=== PATIENT | female | born 1970 | race Caucasian/White ===

== ENCOUNTER 2022-03-07 12:38 | Outpatient (CLI) | payer MEDICAID, SELFPAY ==
[2022-03-07 20:36] LABS: Chloride* 102 mmol/L (96-114); Potassium* 4.1 mmol/L (3.6-5.1); Sodium* 139 mmol/L (135-149)
[2022-03-07 20:38] LABS: Cholesterol* 201 mg/dL (90-199); Creatinine* 0.9 mg/dL (0.5-1.5); Estimated Glomerular Filt Rate 78 ml/min
[2022-03-07 20:39] LABS: Blood Urea Nitrogen* 18 mg/dL (5-24); Calcium* 9.7 mg/dL (8.4-10.6); Carbon Dioxide* 30 mmol/L (20-32); Glucose* 108 mg/dL (60-115); HDL Cholesterol* 49 mg/dL (>=50); LDL Cholesterol Calculated 115 mg/dL (<100); Triglycerides* 184 mg/dL (40-149)
== END 2022-03-07 12:39 | disposition home or self-care (01) ==
PROVIDERS: PCP Family Medicine; Visit Provider Family Medicine
DX: I10 Essential (primary) hypertension (principal); F41.1 Generalized anxiety disorder; G47.00 Insomnia, unspecified; Z13.6 Encounter for screening for cardiovascular disorders
CPT/HCPCS: 80048; 80061

== ENCOUNTER 2022-04-04 15:08 | Outpatient (CLI) | payer MEDICAID, SELFPAY ==
[2022-04-04 15:36] LABS: Appearance Urine Cloudy (Clear); Bilirubin Urine Negative (Negative); Blood Urine Negative (Negative); Color Urine Yellow (Yellow); Glucose Urine Negative (Negative); Ketones Urine Negative (Negative); Leukocyte Esterase Urine Negative (Negative); Nitrite Urine Negative (Negative); Protein Urine Negative (Negative); Specific Gravity Urine >= 1.030 (1.000-1.030); Urobilinogen Urine 0.2 (0.2-1.0)
[2022-04-04 21:23] LABS: Basophils Absolute Auto 0.04 K/uL (0.00-0.30); Basophils Percent Auto 0.5 % (0.0-3.0); Eosinophils Absolute Auto 0.09 K/uL (0.00-0.50); Hematocrit 44.1 % (33.0-51.0); Hemoglobin* 14.5 gm/dL (12.0-16.0); Immature Granulocytes Abs Auto 0.01 K/uL (0.00-0.30); Lymphocytes Absolute Auto 2.27 K/uL (0.90-2.90); Lymphocytes Percent Auto 25.9 % (20-44); Mean Corpuscular HGB Conc 33 gm/dL (32-36); Mean Corpuscular Hemoglobin 26 pg (26-34); Mean Corpuscular Volume 80 fL (80-100); Monocytes Percent Auto 8.3 % (0.0-11.0); Neutrophils Absolute Auto 5.64 K/uL (1.7-7.0); Neutrophils Percent Auto 64.2 % (42.0-72.0); Platelet Count* 359 K/uL (140-440); Red Blood Count 5.53 m/uL (4.00-5.20); White Blood Count* 8.78 K/uL (4.50-11.00)
[2022-04-04 21:28] LABS: Slide Review Reflex No
[2022-04-04 22:08] LABS: Squamous Epithelial Cell Urine Moderate (None-Few)
[2022-04-04 22:09] LABS: Bacteria Urine Many; Other Sediment Urine CALCIUM OXALATE
[2022-04-04 22:47] LABS: Potassium* 3.9 mmol/L (3.6-5.1); Sodium* 138 mmol/L (135-149)
[2022-04-04 22:48] LABS: Carbon Dioxide* 26 mmol/L (20-32); Chloride* 101 mmol/L (96-114)
[2022-04-04 22:49] LABS: Blood Urea Nitrogen* 23 mg/dL (5-24); Calcium* 9.5 mg/dL (8.4-10.6); Creatinine* 1.1 mg/dL (0.5-1.5); Estimated Glomerular Filt Rate 62 ml/min; Glucose* 133 mg/dL (60-115); Total Protein* 7.5 g/dL (6.0-8.3)
[2022-04-04 22:50] LABS: Alanine Aminotransferase* 18 U/L (4-35); Albumin* 4.4 g/dL (3.3-5.0); Alkaline Phosphatase* 98 U/L (40-150); Amylase* 70 U/L (18-89); Aspartate Amino Transferase* 23 U/L (12-35); Bilirubin Total* < 0.1 mg/dL (0.1-1.5); Lipase* 182 U/L (23-300)
== END 2022-04-04 15:09 | disposition home or self-care (01) ==
PROVIDERS: PCP Family Medicine; Visit Provider Nurse Practitioner Family
DX: R10.9 Unspecified abdominal pain (principal); R42 Dizziness and giddiness
CPT/HCPCS: 36415; 80053; 81003; 81015; 82150; 83690; 85025; 87086

== ENCOUNTER 2022-04-18 12:49 | Outpatient (CLI) | payer MEDICAID, SELFPAY ==
--- NOTE | 2022-04-18 13:00 | MR_ITS ---
[facility] [address] [facility] [address] Phone:?[phone] Fax:?[phone] Referring Physician Information: Osbaldo Kwong [address] [facility] [address] Phone:?[phone] Fax:?[phone] Patient:?Maureen Montenegro D.O.B:?1970 Sex:?Female Phone:?[phone] [facility] MRN:?[id number] Exam Date:?04/18/2022 ? EXAM:?MR CERVICAL SPINE WITHOUT CONTRAST CLINICAL INFORMATION: Neck pain evaluate for worsening disc protrusion. COMPARISON: 10/05/2020.?CONTRAST:?None. SEDATION:?None. TECHNICAL INFORMATION: Imaging was performed at [facility]. T1, T2 MPGR, T2 FSE and STIR sagittal thin sections through the cervical spine with T2 gradient refocused and T2 FSE axial sections at selected levels. Axial T1 images were also obtained. INTERPRETATION: Fat suppressed images are negative for acute or subacute fractures. Craniocervical junction structures are unremarkable and the cord appears intrinsically normal. Vertebral artery flow voids and no paraspinous mass lesions. C2-3: Bulge without central or foraminal stenosis and left facet joint degeneration. C3-4: Bulge/left protrusion and osteophyte contact the cord, no central stenosis and severe chronic-appearing left foraminal stenosis. Patent right nerve root canal and unremarkable facet joints. C4-5: Bulge abuts the cord without central stenosis. Moderate right and mild to moderate left chronic foraminal stenosis and unremarkable facet joints. C5-6 and C6-7: Solid-appearing interbody fusion with fused uncovertebral joints by MR criteria. No recurrent central stenosis and continued mild ventral cord flattening due to dorsal osteophyte and fusion bone at C5-6. Foramina appear patent at each level and facet joints are not fused. C7-T1: Bulge abuts dural sac without central or foraminal stenosis. Unremarkable facet joints. CONCLUSION: 1. Solid fusion at C5-6 and C6-7 without complications. 2. Adjacent segment disc degeneration including cord abutment without central stenosis due to bulge/osteophyte at C4-5, and bulge/left protrusion with osteophyte at C3-4 contacts the cord. 3. C7-T1 bulge without stenosis or impingement. 4. Severe left C3-4 and moderate right/mild to moderate left C4-5 foraminal stenosis. Note: Comparison to 10/05/2020 shows no significant interval changes. [id number]:rika Electronically signed on 04/20/2022 6:39:00 AM by Thiago Cardona M.D.
== END 2022-04-18 12:50 | disposition home or self-care (01) ==
PROVIDERS: PCP Family Medicine; Visit Provider Nurse Practitioner Family
DX: M54.2 Cervicalgia (principal); M50.31 Other cervical disc degeneration, high cervical region; M48.02 Spinal stenosis, cervical region
CPT/HCPCS: 72141

== ENCOUNTER 2022-06-08 07:56 | Outpatient (CLI) | payer MEDICAID, SELFPAY ==
--- NOTE | 2022-06-08 08:15 | CRLHL7_ITS ---
For Patients: As a result of the Century Cures Act, medical imaging exams and procedure reports are released immediately into your electronic medical record. You may view this report before your referring provider. If you have questions, please contact your health care provider. INDICATION: Dysphagia TECHNIQUE: Modified barium swallow. Fluoroscopic time 1 minutes 45 seconds. COMPARISON: None FINDINGS/IMPRESSION: Anatomical structures are normal. Swallowing mechanism appears within normal limits. No episodes of penetration or aspiration. Decreased esophageal motility noted in the upper esophagus and mid esophagus. No evidence of stricture or diverticulum. No achalasia. Normal appearance of the cricopharyngeus muscle. Postop changes lower cervical spine fusion. Dictated by Roberto Carlos Morgan MD @ 06/08/2022 9:22:10 AM (Electronically Signed)
--- NOTE | 2022-06-08 13:35 | SLP.EVAL ---
Staci Please review, sign and return Thank you Priscilla Torres, LAYBOY OPERATOR LAYBOY OPERATOR Susan Davis Start: 06/08/22 10:48 Freq: Status: Active Protocol: Document 06/08/22 10:48 [facility] (Rec: 06/08/22 11:08 [facility] [id number]) E-signed By Priscilla Torres CCC, LAYBOY OPERATOR LAYBOY OPERATOR System Review History & Reason For Referral Type of Speech Evaluation Modified Barium Swallow Evaluation Rehabilitation Order Evaluation Date of Order 05/31/22 Reason for Referral swallowing difficulty Treatment Diagnosis Dysphagia Patient Orientation Orientation & Mental Status Within normal LAYBOY OPERATOR Initial Assessment/POC Subjective Information Subjective/Pain Comment Patient independently ambulated to the xray suite. She is pleasant and cooperative. Assessment & Impression Assessment/Impression Patient is a 52 year old female referred for a modified barium swallow study due to complaints of swallowing difficulty. She reports that it happens intermittently and that she feels that food gets stuck and if she takes water, the water comes back up and she sometimes feels like she is choking. She has a history of reflux and takes 40mg omeprazole twice a day. She reports her mother had the same problem and had some procedure but she wasn't sure what it was. ORAL MOTOR FUNCTION AND DENTITION Tongue and lip function within normal and she has adequate natural dentition. THIN LIQUID Patient took small and large sips of thin liquid. She was able to control the boluses well, swallow and had no penetration, aspiration on any trials. PUREE Patient given a teaspoon of puree. She manipulated and swallowed with no penetration, aspiration or pharyngeal residue. She reported the feeling of food sticking. The radiologist panned downed and it did seem that her esophagus was slow to empty. MUFFIN AND COOKIE WITH BARIUM PUREE Patient given separate trials of muffin and cookie mixed with barium puree. She was able to chew and swallow each consistency without penetration, aspiration, or pharyngeal residue. She again felt the food getting stuck and when the radiologist panned down it was evident that her esophagus was slow to empty and some of the bolus was coming back up. IMPRESSIONS AND RECOMMENDATIONS Patient exhibits and safe and functional oral pharyngeal swallow with no penetration, aspiration or pharyngeal residue. The radiologist had the following observations: Anatomical structures are normal. Swallowing mechanism appears within normal limits. No episodes of penetration or aspiration. Decreased esophageal motility noted in the upper esophagus and mid esophagus. No evidence of stricture or diverticulum. No achalasia. Normal appearance of the cricopharyngeal muscle. Postop changes lower cervical spine fusion. Patient reports she is scheduled for an endoscopy. An esophagram is recommended to more fully evaluate esophageal motility. Recommended to patient that she eat softer foods, swallow multiple times to help the bolus move through the esophagus and make sure she give time between bites for her esophagus to clear. Therapist Signature & License # I Certify That Therapy Services Provided Therapist Signature & License Number Priscilla Torres [facility]-LAYBOY OPERATOR, # [id number] Physician Signature Signature of Physician Indicates Medically Needed Services Physician Signature & Date Required Please Sign/Date Here Speech/Language Pathology Billing Units Billing Units Eval Swallow Motion Fluoro 1
== END 2022-06-08 07:57 | disposition home or self-care (01) ==
LOC: RAD 07:57
PROVIDERS: PCP Family Medicine; Visit Provider Nurse Practitioner Family
DX: R13.10 Dysphagia, unspecified (principal)
CPT/HCPCS: 74230; 92611

== ENCOUNTER 2022-06-20 12:37 | Outpatient (CLI) | payer MEDICAID, SELFPAY ==
--- NOTE | 2022-06-20 14:25 | W.ANESCHARGE ---
Anesthesia Charges Start Date/Time Anesthesia Start Date: 06/20/22 Anesthesia Start Time: 13:10 Stop Date/Time Anesthesia Stop Date: 06/20/22 Anesthesia Stop Time: 14:20 Summary Emergency: No
--- NOTE | 2022-06-20 14:34 | W.ANESCHARGE ---
Anesthesia Charges Start Date/Time Anesthesia Start Date: 06/20/22 Anesthesia Start Time: 13:10 Stop Date/Time Anesthesia Stop Date: 06/20/22 Anesthesia Stop Time: 14:20 Summary Emergency: No
== END 2022-06-20 12:38 | disposition home or self-care (01) ==
PROVIDERS: PCP Nurse Practitioner Family; Visit Provider Surgery
DX: Z12.11 Encounter for screening for malignant neoplasm of colon (principal); Z86.010 Personal history of colon polyps; R13.10 Dysphagia, unspecified; K44.9 Diaphragmatic hernia without obstruction or gangrene; K29.70 Gastritis, unspecified, without bleeding; K31.89 Other diseases of stomach and duodenum
CPT/HCPCS: 00811; 00813; 43239; 45378; 88305; 88342; J2704

== ENCOUNTER 2022-08-15 22:45 | Emergency (ER) | payer MEDICAID, SELFPAY ==
[2022-08-15 23:01] VITALS: BP 121/82; PULSE 100; RESP 16; TEMP 36.8; O2SAT 96; BMI 29.9
[2022-08-15] MEDS: ONDANSETRON 2 MG/ML inj 4 MG IVP (23:28)
[2022-08-15] MEDS: 0.9 % SODIUM CHLORIDE 1000 ml 1,000 ML IV (23:31)
--- NOTE | 2022-08-15 23:37 | ED.NAVMDI ---
HPI - Nausea/Vomiting/Diarrhea General Chief complaint: Nausea/Vomiting Stated complaint: Nausea, diarrhea, vomiting Time Seen by Provider: 08/15/22 23:10 History of Present Illness HPI Narrative: Pt is a 52 year old woman who presents with a 1 day history of nausea, vomiting and diarrhea. No fevers or chills. No abd pain. No weakness. No recent travel or sick contacts. Pt has no chest pain or shortness of breath. Pt has had no blood in her vomitus or stool. Pt has otherwise been feeling well. No treatments prior to arrival. Related Data Home Medications Medication Instructions Recorded Confirmed aspirin 81 mg tablet,delayed 81 mg PO QDAY 02/23/22 08/15/22 release cyclobenzaprine 10 mg tablet 10 mg PO .hs PRN 02/23/22 08/15/22 diclofenac sodium 1 % topical gel 2 - 4 g topical QID 02/23/22 08/15/22 (Voltaren Arthritis Pain) Previous Rx's Medication Instructions Recorded lorazepam 0.5 mg tablet (Ativan) 0.5 mg PO BID PRN anxiety #60 tabs 03/07/22 metoprolol succinate 50 mg 50 mg PO QDAY #90 tabs 03/07/22 tablet,extended release 24 hr hydrochlorothiazide 25 mg tablet 25 mg PO QDAY #90 tabs 03/22/22 sumatriptan succinate 100 mg 100 mg PO Q2H PRN migraine 04/06/22 tablet (Imitrex) headache #20 tabs omeprazole 40 mg capsule,delayed 40 mg PO BID #60 caps 07/16/22 release zolpidem 10 mg tablet (Ambien) 10 mg PO .hs PRN sleep #30 tabs 07/16/22 fluoxetine 20 mg capsule (Prozac) 20 mg PO QDAY 30 days #30 caps 07/29/22 tramadol 50 mg tablet 50 mg PO QID PRN pain #120 tabs 08/01/22 Allergies Allergy/AdvReac Type Severity Reaction Status Date / Time No Known Drug Allergies Allergy Verified 07/29/22 12:08 Review of Systems Status of ROS: Reports: 10 or more systems reviewed and unremarkable except as noted in History and below [facility] Medical History Chronic neck pain Depression Fibromyalgia JG (generalized anxiety disorder) GERD (gastroesophageal reflux disease) Health care directive on file History of colon polyps History of kidney stones History of peptic ulcer disease Hypertension Insomnia Migraine Restless legs syndrome (RLS) Surgical History History of fusion of cervical spine (07/2017) History of hemorrhoidectomy (2010) History of laparoscopic cholecystectomy (01/20/21) History of total abdominal hysterectomy and bilateral salpingo-oophorectomy (2003) Family History Mother Coronary artery disease Esophageal stricture Brother Family history of prostate cancer Colon cancer Sister Ovarian cancer, Onset Age: 52 Social History (Updated 03/29/22 @ 13:06 by Danyell Sanabria) Narrative: . 2 children. Nonsmoker. Social EtOH. Smoking Status: Never smoker Little interest or pleasure in doing things: nearly every day Feeling down, depressed, or hopeless: more than half the days Exam Narrative: Exam Narrative: EXAM GENERAL: Patient appears comfortable and well. EYES: No scleral icterus. THYROID: no thyroid nodules or thyromegaly. LYMPH: No supraclavicular or cervical lymphadenopathy. SKIN: Visible skin seen during exam normal or with benign process only. EXT: No dependent lower extremity pedal edema. HEART: Regular rate and rhythm with no murmurs, rubs, or gallops. LUNGS: Clear to auscultation bilaterally with no crackles or wheezes. ABD: Soft, non tender, non distended. PSYCH: Good eye contact, speech is not pressured. Const: Vital Signs, click to edit/add: Vital Signs - 24 hr 08/15/22 23:01 Temperature 98.3 F Pulse Rate [Right Pulse Oximeter] 100 Respiratory Rate 16 Blood Pressure [Ri ght Upper Arm] 121/82 Pulse Oximetry 96 Oxygen Delivery Me thod Room Air Course Course Hospital Course: Pt seen and examined. Saline lock placed. Saline hydration started IV Zofran given. cbc, cmp, amylase ordered. Reevaluation(s) Reevaluation #1: Pt feeling better. Labs reviewed by me. Potassium low at 3.0. Pt able to tolerate 40 meq of oral potassium. 2 liters saline given. Time: 01:01 Vital Signs Vital signs: Initial Vital Signs Temperature 98.3 F 08/15/22 23:01 Temperature Source Temporal Artery Scan 08/15/22 23:01 Pulse Rate 100 08/15/22 23:01 Pulse Rhythm 08/15/22 23:01 Respiratory Rate 16 08/15/22 23:01 Blood Pressure 121/82 08/15/22 23:01 Blood Pressure Mean 95 08/15/22 23:01 Blood Pressure Position Sitting 08/15/22 23:01 Pulse Oximetry 96 08/15/22 23:01 Oxygen Delivery Method 08/15/22 23:01 Vital Signs Temperature 98.3 F 08/15/22 23:01 Pulse Rate 100 08/15/22 23:01 Respiratory Rate 16 08/15/22 23:01 Blood Pressure 121/82 08/15/22 23:01 Pulse Oximetry 96 08/15/22 23:01 Oxygen Delivery Method 08/15/22 23:01 Temperature 98.3 F 08/15/22 23:01 Pulse Rate 100 08/15/22 23:01 Respiratory Rate 16 08/15/22 23:01 Blood Pressure 121/82 08/15/22 23:01 Pulse Oximetry 96 08/15/22 23:01 Oxygen Delivery Method 08/15/22 23:01 MDM - Nausea/Vomiting/Diarrhea Medical Records Medical records narrative: Pt presents with nausea, vomiting and diarrhea. Symptoms resolve with saline hydration and zofran. Pt's hypokalemia treated with oral 40 MEQ plus resumption of a regular diet. Exam and vitals otherwise normal. Pt treated and released with odt Zofran and PCP follow up. Lab Data Labs: Lab Results 08/15/22 08/15/22 Range/Units 23:30 23:30 WBC 8.69 (4.50-11.00) K/uL RBC 5.11 (4.00-5.20) m/uL Hgb 14.9 (12.0-16.0) gm/dL Hct 43.2 (33.0-51.0) % MCV 85 (80-100) fL MCH 29 (26-34) pg MCHC 35 (32-36) gm/dL RDW Coeff of Felix 13.1 (11.5-15.5) % Plt Count 307 (140-440) K/uL Neut % (Auto) 83.9 H (42.0-72.0) % Lymph % (Auto) 8.7 L (20-44) % [place] % (Auto) 7.1 (0.0-11.0) % Eos % (Auto) 0.0 (0.0-7.0) % Baso % (Auto) 0.1 (0.0-3.0) % Neut # (Auto) 7.30 H (1.7-7.0) K/uL Lymph # (Auto) 0.80 L (0.90-2.90) K/uL [place] # (Auto) 0.60 (0.00-0.90) K/UL Eos # (Auto) 0.00 (0.00-0.50) K/uL Baso # (Auto) 0.01 (0.00-0.30) K/uL Sodium 138 (135-149) mmol/L Potassium 3.0 L (3.6-5.1) mmol/L Chloride 103 (96-114) mmol/L Carbon Dioxide 26 (20-32) mmol/L BUN 23 (7-30) mg/dL Creatinine 0.7 (0.5-1.5) mg/dL Estimated Creat Clear 90.01 Estimated GFR 105 ml/min Glucose 153 H (60-115) mg/dL Calcium 9.1 (8.4-10.6) mg/dL Total Bilirubin 0.6 (0.1-1.5) mg/dL AST 26 (12-35) U/L ALT 24 (4-35) U/L Alkaline Phosphatase 79 (40-150) U/L Total Protein 7.5 (6.0-8.3) g/dL Albumin 4.6 (3.3-5.0) g/dL Amylase 68 (18-89) U/L Discharge Plan Discharge Clinical Impression: Gastroenteritis Patient Disposition: Home, Self-Care Condition: Stable Instructions: Gastroenteritis (ED) Additional Instructions: Zofran ODT as directed Activity Level: No Restrictions Discharge Diet: Regular Prescriptions: No Action metoprolol succinate 50 mg tablet extended release 24 hr 50 mg PO QDAY Qty: 90 1RF lorazepam [Ativan] 0.5 mg tablet 0.5 mg PO BID PRN (Reason: anxiety) Qty: 60 2RF fluoxetine [Prozac] 20 mg capsule 20 mg PO QDAY 30 Days Qty: 30 0RF tramadol 50 mg tablet 50 mg PO QID PRN (Reason: pain) Qty: 120 1RF aspirin 81 mg tablet,delayed release (DR/EC) 81 mg PO QDAY Hold Instructions: none cyclobenzaprine 10 mg tablet 10 mg PO .hs PRN diclofenac sodium [Voltaren Arthritis Pain] 1 % gel 2 - 4 g topical QID Rx Instructions: apply to single elbow, wrist or hand; for hand includes palm/fingers/back of hand hydrochlorothiazide 25 mg tablet 25 mg PO QDAY Qty: 90 1RF sumatriptan succinate [Imitrex] 100 mg tablet 100 mg PO Q2H MDD 200mg PRN (Reason: migraine headache) Qty: 20 5RF zolpidem [Ambien] 10 mg tablet 10 mg PO .hs PRN (Reason: sleep) Qty: 30 5RF omeprazole 40 mg capsule,delayed release(DR/EC) 40 mg PO BID Qty: 60 0RF Follow Up/Referrals: Staci Mckinley, GROCERY CHECKER, RECREATIONAL PROGRAMS DIRECTOR [Primary Care Provider] - Stand Alone Forms: [facility] Instructions
[2022-08-15 23:41] LABS: Basophils Absolute Auto 0.01 K/uL (0.00-0.30); Basophils Percent Auto 0.1 % (0.0-3.0); Hematocrit 43.2 % (33.0-51.0); Hemoglobin* 14.9 gm/dL (12.0-16.0); Immature Granulocytes Abs Auto 0.02 K/uL (0.00-0.30); Immature Granulocytes Pct Auto 0.2 %; Lymphocytes Percent Auto 8.7 % (20-44); Mean Corpuscular HGB Conc 35 gm/dL (32-36); Mean Corpuscular Hemoglobin 29 pg (26-34); Mean Corpuscular Volume 85 fL (80-100); Monocytes Percent Auto 7.1 % (0.0-11.0); Neutrophils Percent Auto 83.9 % (42.0-72.0); Platelet Count* 307 K/uL (140-440); RDW Coefficient of Variation % 13.1 % (11.5-15.5); Red Blood Count 5.11 m/uL (4.00-5.20); White Blood Count* 8.69 K/uL (4.50-11.00)
[2022-08-15 23:49] LABS: Slide Review Reflex No
[2022-08-15 23:53] LABS: Albumin* 4.6 g/dL (3.3-5.0)
[2022-08-15 23:54] LABS: Chloride* 103 mmol/L (96-114); Sodium* 138 mmol/L (135-149)
[2022-08-15 23:56] LABS: Amylase* 68 U/L (18-89); Bilirubin Total* 0.6 mg/dL (0.1-1.5); Carbon Dioxide* 26 mmol/L (20-32); Creatinine* 0.7 mg/dL (0.5-1.5); Est. Creatinine Clearance* 90.01; Estimated Glomerular Filt Rate 105 ml/min; Total Protein* 7.5 g/dL (6.0-8.3)
[2022-08-15 23:57] LABS: Alanine Aminotransferase* 24 U/L (4-35); Alkaline Phosphatase* 79 U/L (40-150); Aspartate Amino Transferase* 26 U/L (12-35); Blood Urea Nitrogen* 23 mg/dL (7-30); Calcium* 9.1 mg/dL (8.4-10.6); Glucose* 153 mg/dL (60-115)
--- NOTE | 2022-08-15 23:57 | ED.NURSE ---
Daughter Heather will be heading home. Her number is [phone]
[2022-08-16] MEDS: KETOROLAC 30 MG/ML inj IVP
[2022-08-16 01:00] VITALS: BP 118/78; PULSE 74; RESP 16; O2SAT 95
[2022-08-16] MEDS: 0.9 % SODIUM CHLORIDE 1000 ml 1,000 ML IV (01:02)
[2022-08-16] MEDS: POTASSIUM CHLORIDE 10 MEQ CAPSULE ER 40 MEQ PO (01:03)
[2022-08-16 02:14] VITALS: BP 113/75; PULSE 75; RESP 16
== END 2022-08-16 02:15 | disposition home or self-care (01) ==
PROVIDERS: Emergency Provider Internal Medicine; PCP Nurse Practitioner Family
DX: K52.9 Noninfective gastroenteritis and colitis, unspecified (principal)
CPT/HCPCS: 36415; 80053; 82150; 85025; 96374; 96375; 99283; 99284; A9270; J1885; J2405; J7030

== ENCOUNTER 2023-04-21 10:40 | Outpatient (CLI) | payer MEDICAID, SELFPAY | END 2023-04-21 10:41 | disposition home or self-care (01) | PROVIDERS: PCP Nurse Practitioner Family; Visit Provider Nurse Practitioner Family | DX: Z01.818 Encounter for other preprocedural examination (principal) | CPT/HCPCS: 80053; 85025 ==

== ENCOUNTER 2023-10-01 20:59 | Emergency (ER) | payer MEDICAID, SELFPAY ==
[2023-10-01 21:10] VITALS: BP 96/66; PULSE 57; RESP 18; TEMP 36.7; O2SAT 98; BMI 28.1
--- OUTSIDE RECORDS SUMMARY | 2023-10-01 21:38 | XMS_ITS | Patient Health Record ---
Author Name Unknown Organization [facility] Address [address] [place] [address] [address] [place] [address] Care Team Providers Care Healthcare Technician Name Role Phone Roberto Carlos Hill MD Primary Care Provider Unavail able Orville Quezada Unavailable [phone] Saul [facility] MALDONADO Unavailable Un available Jeremy Reed Unavailable [phone] Bruce Sanchez Unavailable [phone] Joanna Morley Unavailable [phone] ALLERGIES Allergen (clinical drug ingredient) Drug/Non Drug Allergy documented on EMR Reaction Allergy Type Onset Date Status ibuprofen Ibuprofen Unknown Drug Allergy Active RESULTS Component Value Reference Range Notes Urine toxicology Reviewed date:03/16/2023 01:55:25 PM Interpretation:See Results Performing Lab: Notes/Report: See Results ADAN Buprenophine OPI 300 0 AMP Ethanol MET Creatinine MDMA pH Specific [place] BAR BZO OXY See Results MTD Urine toxicology Reviewed date:03/16/2023 01:55:25 PM Interpretation:See Results Performing Lab: Notes/Report: See Results ADAN Buprenophine OPI 300 0 AMP Ethanol MET Creatinine MDMA pH Specific [place] BAR BZO OXY See Results MTD Urine toxicology Reviewed date:01/10/2023 01:08:14 PM Interpretation:see results Performing Lab: Notes/Report: see results ADAN Buprenophine OPI 300 1000 AMP Ethanol MET Creatinine MDMA pH Specific [place] BAR BZO OXY See Results MTD REASON FOR REFERRAL Reason Refer to [facility] [place]. Evaluate and treat neck and low back pain. Continue PT for neck pain and add low back to plan of care. Please call patient to schedule at [phone] Diagnosis 1 Cervicalgia (M54.2) Diagnosis 2 Low back pain, unspe cified (M54.50) Referral Organization [facility] Referring Provider First Name Bruce Referring Provider Last Name Matiasjoseph Referring Provider Speciality Physician Claim Approver Referred Provider Specialty Physical The rapist General Notes Blanca Baxter 023 03:23:06 PM >Please call the patient to schedule and fax back all notes to [phone]. If you need additional records for this referral, please call [phone]. Thanks! Referral Priority Routine MEDICATIONS Medication SIG (Take, Route, Frequency, Duration) Notes Start Date End Date Status Belbuca 150 MCG 1 film Bucally every 12 hrs for 30 days G89.29, M54.2 04/04/2023 Active oxyCODONE-Acetaminophen 5-325 MG 1 tablet as needed Orally (ok to fill 04/15/23) every 8 hours for 30 days G89.29, M54.2 04/15/2023 Active SUMAtriptan Succinate Active Naloxone 4mg/ 0.1 ml 1 dose Nasally PRN for suspected overdose, call 911, open second box and give 1 dose nasally q 2-3 min until EMS arrives Active Ondansetron HCl 8 MG 1 tablet as needed Orally Once a day Active rOPINIRole HCl 1 MG 1 tablet 1 to 3 hours before bedtime Orally Once a day Active Metoprolol Succinate ER Active Omeprazole 40 MG 1 capsule 30 minutes before morning meal Orally Once a day Active Gabapentin 300 MG 2 capsule Orally Once a day Active hydroCHLOROthiazide Active Zolpidem Tartrate 10 MG 1 tablet at bedtime as needed Orally Once a day Active Diclofenac Sodium 1 % as directed Externally Active tiZANidine HCl 4 MG 1 tablet as needed Orally Three times a day Active LORazepam 0.5 MG 1 tablet as needed Orally Twice a day Active SOCIAL HISTORY Sex Assigned At : Social History Observation Description Sex Assigned At Unknown Alcohol Screen Question Answer Notes Did you have a drink containing alcohol in the p ast year? No Points 0 Interpretation Negative PROBLEMS Problem Type ICD Code Onset Dates Problem Status W/U Status Risk SNOMED Code Notes Problem Opioid dependence, uncomplicated (F11.20) Active confirmed Opioid dependence (53654267) Problem Other chronic pain (G89.29) Active confirmed Chronic pain (89565905) Problem Spondylosis without myelopathy or radiculopathy, cervical region (M47.812) Active confirmed Cervical spondylosis without myelopathy (818007733) Problem Cervicalgia (M54.2) Active confirmed Cervicalgia (83692281) Problem Low back pain, unspecified (M54.50) Active confirmed Low back pain (828712678) Problem Cervical radiculopathy (M54.12) Active confirmed Cervical radiculopathy (74815627) VITAL SIGNS Blood pressure diastolic 94 mm Hg 04/04/2023 Height 66 in 04/04/2023 Blood pressure systolic 160 mm Hg 04/04/2023 Weight 180 lbs 04/04/2023 BMI 29.05 kg/m2 04/04/2023 PROCEDURES Procedure Date Ordered Date Performed Result Body Sit e Intervention: 02/08/2023 06/22/202306/22 Sent TE to provider, close proc order Intervention: 01/18/2023 01/24/2023 Sched 01/25 Intervention: 01/17/2023 01/18/2023 EVONW OK to schedule Intervention: 12/20/2022 12/27/2022 sched 12/29 Encounters Encounter Location Date Provider Diagnosis [facility] [address] [place] [address] [address] [place] [id number] 10/24/2022 Jeremy Reed [facility] [address] [place] [address] [address] [place] [id number] 12/28/2022 Orville Quezada [facility] [address] [place] [address] [address] [place] [id number] 12/28/2022 Orville Quezada [facility] [address] [place] [address] [address] [place] [id number] 12/30/2022 Joanna Morley [facility] [address] [place] [address] [address] [place] [id number] 01/06/2023 Orville Quezada [facility] [address] [place] [address] [address] [place] [id number] 01/12/2023 Bruce Sanchez [facility] [address] [place] [address] [address] [place] [id number] 01/17/2023 Orville Quezada [facility] [address] [place] [address] [address] [place] [id number] 01/26/2023 Orville Quezada [facility] [address] [place] [id number] 02/07/2023 Orville Quezada [facility] [address] [place] [id number] 04/05/2023 Orville Quezada [facility] [address] [place] [id number] 05/01/2023 Orville Quezada [facility] [address] [place] [id number] 05/09/2023 Orville Quezada [facility] [address] [place] [id number] 02/08/2023 Orville Quezada [address] [facility] [address] [place] [address] 12/20/2022 Orville Quezada Cervicalgia M54.2 ; Spondylosis without myelopathy or radiculopathy, cervical region M47.812 ; Other chronic pain G89.29 ; Low back pain, unspecified M54.50 ; Opioid dependence, uncomplicated F11.20 ; snf (current) use of opiate analgesic Z79.891 and Encounter for screening for other disorder Z13.89 [address] [facility] [address] [place] [address] 01/17/2023 Bruce Bolick Spondylosis without myelopathy or radiculopathy, cervical region M47.812 ; Cervicalgia M54.2 and Other chronic pain G89.29 [address] [facility] [address] [place] [phone] 05/10/2023 Bruce Bolick [address] [facility] [address] [place] [address] 02/08/2023 Bruce Bolick Spondylosis without myelopathy or radiculopathy, cervical region M47.812 ; Cervical radiculopathy M54.12 ; Other chronic pain G89.29 and Cervicalgia M54.2 [address] [facility] [address] [place] [phone] 03/07/2023 Bruce Bolick Spondylosis without myelopathy or radiculopathy, cervical region M47.812 ; Cervical radiculopathy M54.12 ; Cervicalgia M54.2 ; Other chronic pain G89.29 ; snf (current) use of opiate analgesic Z79.891 and Opioid dependence, uncomplicated F11.20 [address] [facility] [address] [place] [address] 04/04/2023 Bruce Bolick Spondylosis without myelopathy or radiculopathy, cervical region M47.812 ; Cervical radiculopathy M54.12 ; Cervicalgia M54.2 and Other chronic pain G89.[address] [place] [address] 01/25/2023 Orville Quezada [address] [facility] [address] [place] [address] 12/29/2022 Orville Quezada Cervical radiculopathy M54.[address] [place] [address] 01/24/2023 Orville Quezada ASSESSMENTS Encounter Date Diagnosis Assessment Notes Treatment Notes Treatment Clinical Notes 04/04/2023 Spondylosis without myelopathy or radiculopathy, cervical region (ICD-10 - M47.812) 02/08/2023 Spondylosis without myelopathy or radiculopathy, cervical region (ICD-10 - M47.812) 02/08/2023 Cervical radiculopathy (ICD-10 - M54.12) 01/17/2023 Spondylosis without myelopathy or radiculopathy, cervical region (ICD-10 - M47.812) 01/17/2023 Cervicalgia (ICD-10 - M54.2) 12/29/2022 Cervical radiculopathy (ICD-10 - M54.12) 12/20/2022 Spondylosis without myelopathy or radiculopathy, cervical region (ICD-10 - M47.812) 12/20/2022 Cervicalgia (ICD-10 - M54.2) 03/07/2023 Spondylosis without myelopathy or radiculopathy, cervical region (ICD-10 - M47.812) 03/07/2023 Cervicalgia (ICD-10 - M54.2) 03/07/2023 Cervical radiculopathy (ICD-10 - M54.12) 12/20/2022 Other chronic pain (ICD-10 - G89.29) Maureen presents to the clinic for an evaluation regarding her chronic neck pain. I have reviewed her symptoms and current medications. I checked the [facility] database and I did not find any inconsistencies. She signed an REJI to Dr. Conley today for his previous notes. She completed a cervical MRI on 04/18/2022 and a cervical and lumbar MRI on 12/06/2022 which I reviewed with her today; see impressions below. Based on her current symptoms, imaging results, and physical examination, I have ordered a TIFFANY (levels to be determined) for her neck pain. She was in agreement, so I ordered this injection today. I have referred her to Back in [facility] in [place] to continue physical therapy for her neck pain and to add PT for the low back. I advised that she complete physical therapy for her low back prior to proceeding with lumbar injections. I will continue with a treatment plan consisting of medication management and injection therapy. Regarding medications, I have rotated her from Egan to Percocet 5-325mg TID for pain relief. I discussed the risks of taking opioid pain medication including tolerance and respiratory suppression when taking Ambien and lorazepam concurrently with Percocet. I have also sent Narcan in the event of unintentional overdose. As we will now be prescribing opioid pain medication on a chronic basis, she has signed a pain contract and consented to a baseline UDS to establish care. This treatment plan was reviewed with Maureen, and she was agreeable. She will return in one month for further evaluation or sooner if needed. I will continue to monitor her progress, adjusting her treatment plan as necessary. Discharge instructions reviewed verbally. Discussed the risks/benefits of prescribed medication.The patient is aware that medication may be discontinued at any time due to poor compliance with visits, and recommended treatment and/or if patient does adhere to the signed pain contract. The patient was instructed to return to the office as scheduled and call with any questions, problems or concerns. MRI Cervical Dated 2CONCLUSI ON:1. Solid fusion at C5-6 and C6-7 without complications.2. Adjacent segment disc degeneration including cold abutment without central stenosis due to bulge/osteophyte at C4-5, and bulge/left protrusion with osteophyte at C3-4 contacts the cord.3. C7-T1 bulge without stenosis or impingement.4. Severe left C3-4 and moderate right/mild to moderate left C4-5 foraminal stenosis. Note: Comparison to 10/05/2020 shows no significant interval changes. MRI Cervical Dated 12/06/2022IMPRESSI ON:1. Fusion at C5-6 and C6-7 without MR evidence for complication.2. Disc osteophyte complex at C3-4 contacts the ventral cervical cord with unchanged advanced left neural foraminal narrowing.3. Uncovertebral hypertrophy contribute to moderate bilateral neural foraminal narrowing at C4-5. 4. Dorsal osteophytes and fusion bone with stable contact the ventral cervical cord at C5-6 and C6-7. Moderate bilateral neural foraminal narrowing at C6-7.5. No significant interval change when compared to 04/18/2022. MRI Lumbar Dated 12/06/2022IMPRESSI ON:1. L4-5 moderate disc bulge and posterior annular fissure. Mild spinal canal and bilateral neural foraminal narrowing.2. Disc desiccation and moderate disc height loss at the lumbosacral junction with small posterior disc bulge but no significant spinal canal or neural foraminal narrowing. 01/17/2023 Other chronic pain (ICD-10 - G89.29) Maureen returns to clinic today for a follow up evaluation regarding her chronic neck pain. I have reviewed the [facility] database and did not find any inconsistencies. We discussed her current symptoms and medications. I will continue with a treatment plan consisting of conservative therapy at this time. I believe she is a good candidate for a C3-4, C4-5 TIFFANY as previously recommended by Dr. Hughes. Regarding medications, I will refill her Percoet and I recommended an increase in Gabapentin to 2 tabs TID for further pain relief. This treatment plan was reviewed with her, and she was agreeable. I will continue to monitor her progress and she will follow up in one month or sooner if needed. Plan:1. Order C3-4, C4-5 CESI2. Refill Percocet3. Recommended increase in Gabapentin to 2 tabs TID4. Follow up in 1 month. Discharge instructions reviewed verbally. Discussed the risks/benefits of prescribed medication. The patient is aware that medication may be discontinued at any time due to poor compliance with visits, and recommended treatment and/or if patient doesn't adhere to the signed pain contract. The patient was instructed to return to the office as scheduled and call with any questions, problems or concerns. 04/04/2023 Cervical radiculopathy (ICD-10 - M54.12) 02/08/2023 Other chronic pain (ICD-10 - G89.29) Maureen returns to clinic today for a follow up evaluation regarding her chronic neck pain. I have reviewed the [facility] database and did not find any inconsistencies. We discussed her current symptoms and medications. On 01/25/2023, she received a bilateral C4-5 TFE and reports no relief. After discussion with Dr. Quezada, I have recommended and ordered a bilateral C3-4 TFE for her neck pain. I advised that she follow up with Dr. Hughes to discuss her ongoing neck pain following injections. I will continue with a treatment plan consisting of medication management at this time. Regarding medications, I have refilled her Percocet 5-325mg TID as this medication continues to provide moderate pain relief without side effects. I advised that I will not provide any further early refills after today and explained that this is a violation of her pain contract. I also advised that any further violations will result in discharge from opioid medication management. This treatment plan was reviewed with Maureen, and she was agreeable. I will continue to monitor her progress and she will follow up in one month or sooner if needed. Discharge instructions reviewed verbally. Discussed the risks/benefits of prescribed medication. The patient is aware that medication may be discontinued at any time due to poor compliance with visits, and recommended treatment and/or if patient doesn't adhere to the signed pain contract. The patient was instructed to return to the office as scheduled and call with any questions, problems or concerns. 04/04/2023 Cervicalgia (ICD-10 - M54.2) 02/08/2023 Cervicalgia (ICD-10 - M54.2) 12/20/2022 Low back pain, unspecified (ICD-10 - M54.50) 03/07/2023 Other chronic pain (ICD-10 - G89.29) Maureen returns to clinic today for a follow up evaluation regarding her chronic neck pain. I have reviewed the [place] [facility] [facility] database and did not find any inconsistencies. We discussed her current symptoms and medications. She will continue to follow up with Dr. Hughes to discuss her ongoing neck pain and possible surgery. I will continue with a treatment plan consisting of medication management at this time. She consented to a UDS for high risk compliance monitoring. Regarding medications, I have refilled her Percocet 5-325mg TID as this medication continues to provide moderate pain relief without side effects. I denied her request for an increase in Percocet. This treatment plan was reviewed with Maureen, and she was agreeable. I will continue to monitor her progress and she will follow up in one month or sooner if needed. Discharge instructions reviewed verbally. Discussed the risks/benefits of prescribed medication. The patient is aware that medication may be discontinued at any time due to poor compliance with visits, and recommended treatment and/or if patient doesn't adhere to the signed pain contract. The patient was instructed to return to the office as scheduled and call with any questions, problems or concerns. 03/07/2023 snf (current) use of opiate analgesic (ICD-10 - Z79.891) 04/04/2023 Other chronic pain (ICD-10 - G89.29) Maureen returns to clinic today for a follow up evaluation regarding her chronic neck pain. I have reviewed the [facility] database and did not find any inconsistencies. We discussed her current symptoms and medications. She might continue to follow up with Dr. Hughes to discuss her ongoing neck pain, EMG, and possible surgery. But at this time she plans to see Dr. Conley for a second opinion. Dr. Conley did her original fusion. I will continue with a treatment plan consisting of medication management at this time. Regarding medications, I have refilled her Percocet 5-325mg TID as this medication continues to provide moderate pain relief without side effects. I have also added Belbuca 150mcg to provide more stable pain relief. This treatment plan was reviewed with Maureen, and she was agreeable. I will continue to monitor her progress and she will follow up in one month or sooner if needed. Discharge instructions reviewed verbally. Discussed the risks/benefits of prescribed medication. The patient is aware that medication may be discontinued at any time due to poor compliance with visits, and recommended treatment and/or if patient doesn't adhere to the signed pain contract. The patient was instructed to return to the office as scheduled and call with any questions, problems or concerns. 12/20/2022 Opioid dependence, uncomplicated (ICD-10 - F11.20) 12/20/2022 snf (current) use of opiate analgesic (ICD-10 - Z79.891) 03/07/2023 Opioid dependence, uncomplicated (ICD-10 - F11.20) 12/20/2022 Encounter for screening for other disorder (ICD-10 - Z13.89) As a component of this patient being on a long-term controlled-substanc e medication for chronic pain we performed screening questionnaire tests for drug misuse (DAST), alcohol misuse (AUDIT), and mental health imbalances (PHQ-9 for depression and JG-7 for anxiety) as recommended by the Centers for Disease Control to evaluate for risk factors for opioid-related harms before starting and periodically during continuation of opioid therapy. 12/20/2022 Other I, Rufina Avitia , am serving as a scribe to document services personally performed by Bruce Sanchez PA-C, based upon my observations and the provider's statements to me. All documentation has been reviewed by the aforementioned ERIC as well as Orville Quezada MD, prior to being entered into the official medical record. I, Orville Quezada MD attest that the above named individual is acting in scribe capacity, has observed Bruce Sanchez's performance of the services and has documented them in accordance with her direction. The documentation recorded by the scribe accurately reflects the service Bruce Sanchez PA-C, personally performed and the decisions made by her. Thank you very much Dr. Hughes for kindly referring Maureen to our practice. It is a pleasure to participate in Maureen's care. Please feel free to contact me with any questions or concerns. 01/17/2023 Other Justina, Rich Valente , am serving as a scribe to document services personally performed by Bruce Sanchez PA-C, based upon my observations and the provider's statements to me. All documentation has been reviewed by the aforementioned ERIC as well as Jeremy Reed MD, prior to being entered into the official medical record. I, Jeremy Reed MD attest that the above named individual is acting in scribe capacity, has observed Bruce Sanchez's performance of the services and has documented them in accordance with her direction. The documentation recorded by the scribe accurately reflects the service Bruce Sanchez PA-C, personally performed and the decisions made by her. 02/08/2023 Other Justina, Rufina Avitia , am serving as a scribe to document services personally performed by Bruce Sanchez PA-C, based upon my observations and the provider's statements to me. All documentation has been reviewed by the aforementioned PAZuleika. Bruce Horn PA-C, attest that the above named individual is acting in scribe capacity, has observed my performance of the services and has documented them in accordance with my direction. The documentation recorded by the scribe accurately reflects the service I personally performed and the decisions made during the clinic visit. 03/07/2023 Other Jax Horn, am serving as a scribe to document services personally performed by Bruce Sanchez PA-C, based upon my observations and the provider's statements to me. All documentation has been reviewed by the aforementioned PA-C. Justina, Bruce Sanchez PA-C, attest that the above named individual is acting in scribe capacity, has observed my performance of the services and has documented them in accordance with my direction. The documentation recorded by the scribe accurately reflects the service I personally performed and the decisions made during the clinic visit. 04/04/2023 Other Jax Horn, am serving as a scribe to document services personally performed by Bruce Sanchez PA-C, based upon my observations and the provider's statements to me. All documentation has been reviewed by the aforementioned PA-C. Justina, Bruce Sanchez PA-C, attest that the above named individual is acting in scribe capacity, has observed my performance of the services and has documented them in accordance with my direction. The documentation recorded by the scribe accurately reflects the service I personally performed and the decisions made during the clinic visit. PLAN OF TREATMENT No Information Insurance Providers Payer Name Payer Address Payer Phone Subscriber Number Group Number Insured Name Patient Relationship to Insured Coverage Start Date Coverage End Date [facility] [address] [place] [address] [id number] Maureen Montenegro Self - patient is the insured 2 [facility] [address] [address] [place], [place] [id number] Maureen Montenegro Self - patient is the insured MEDICAL (GENERAL) HISTORY Medical History History ICD Code Gastric ulcer Surgical History Surgery Date(Month/Year) C5-7 Fusion 01/20/2015 Gallbladder removal 01/19/2021 Hysterectomy 05/21/2003 Hemorrhoidectomy 02/19/2012
--- OUTSIDE RECORDS SUMMARY | 2023-10-01 21:38 | XMS_ITS | Clinical Summary ---
Author Name Unknown Organization [facility] Address [place], [place] [address] Care Team Providers Care Division Operations Specialist Name Role Phone Roberto Carlos Hill MD Primary Care Provider + Allergies No known active allergies Medications Medication Sig Dispensed Refills Start Date End Date Status MULTIVITAMIN (MULTIPLE VITAMIN ORAL) Take 1 Tab by mouth once daily. 0 Active LORazepam (ATIVAN) 0.5 mg tab Take 0.5 mg by mouth 2 times daily if needed for Anxiety. 0 Active ondansetron (ZOFRAN ODT) [address] 8 mg on the tongue every 8 hours if needed. 0 Active SUMAtriptan (IMITREX) 100 mg tablet Take 100 mg by mouth 2 times daily if needed for Migraine. Give at minimum 2hrs apart. Max Dose: 200mg per 24hrs. 0 Active tiZANidine (ZANAFLEX) 4 mg tablet Take 4 mg by mouth three times daily. 0 Active oxyCODONE (ROXICODONE) 5 mg immediate release tabletIndications:A cute post-operative pain Take 1 to 2 tablets (5-10 mg) by mouth every 4 hours if needed for Pain (First choice for severe pain.). 20 Tablet 0 04/26/2023 Active albuterol HFA (PRO-AIR; VENTOLIN; PROVENTIL) 90 mcg/actuation inhaler one time if needed. 0 12/23/2020 Active buPROPion (WELLBUTRIN XL) 300 mg Extended-Release tablet Take 300 mg by mouth every morning. 0 07/24/2023 Active celecoxib (CELEBREX) 200 mg capsule Take 200 mg by mouth. 0 07/25/2023 Active eszopiclone (LUNESTA) 3 mg tablet Take 3 mg by mouth at bedtime. 0 07/27/2023 Active FLUoxetine (PROZAC) 40 mg capsule Take 40 mg by mouth. 0 07/25/2023 Active hydroCHLOROthiazide (HCTZ) 25 mg tablet 0 08/03/2023 Activ e metoprolol succinate (TOPROL XL) 50 mg sustained-release tablet Take 50 mg by mouth once daily. 0 07/01/2023 Active Narcan 4 mg/actuation nasal spray CALL 911. SPR CONTENTS OF ONE SPRAYER (0.1ML) INTO ONE NOSTRIL. REPEAT IN 2-3 MIN IF SYMPTOMS OF OPIOID EMERGENCY PERSIST, ALTERNATE NOSTRILS 0 12/21/2022 Active prochlorperazine (COMPAZINE) 10 mg tablet TAKE 1 TABLET BY MOUTH THREE TIMES DAILY NEEDED FOR NAUSEA OR VOMITING 0 05/31/2023 Active clotrimazole (LOTRIMIN) 1 % creamIndications:Ti kathleen Apply topically to affected area(s) two times daily. 45 g 0 08/06/2023 Active ketoconazole 2% topical (NIZORAL) creamIndications:Ti kathleen corporis Apply topically to affected area(s) two times daily. 60 g 0 08/17/2023 Active omeprazole 20 mg tabletIndications:A bdominal pain, LLQ (left lower quadrant),History of peptic ulcer TAKE 1 TABLET(20 MG) BY MOUTH TWICE DAILY 60 Tablet 0 09/20/2023 Active omeprazole 20 mg tabletIndications:A bdominal pain, LLQ (left lower quadrant),History of peptic ulcer Take 1 Tablet (20 mg) by mouth two times daily. 90 Tablet 0 11/15/2022 Discontinued Active Problems Problem Noted Date Diagnosed Date Acute post-operative pain 04/26/2023 Depression 04/25/2023 Fibromyalgia 04/25/2023 Restless legs syndrome 04/25/2023 Hypertension 04/25/2023 Classical migraine with intractable migraine Gastroesophageal reflux disease without esophagi tis 11/24/2017 Anxiety 07/05/2013 History of GI bleed Overview: Notes Recorded by Derek William MD on 09/06/2017 at 11:57 AM Your stomach biopsies show erosions and inflammation probably from use of NSAID's or aspirin. Continue on the Prilosec to heal these areas of inflammation Encounters Date Type Department Care Team Description 09/20/2023 Refill [facility] [address] [place] [address] Luisa Dooley MD Refill Request (Omeprazole) 08/18/2023 Telephone [facility] [address] [place] [address] Grazyna Rockwell NP Results 08/17/2023 6:30 PM [employer] Office Visit [facility] [address] [place] [address] Grazyna Rockwell NP Dysuria (C/O dysuria and burning urination. 08/06/2023 she was into UC for similar symptoms. She states the UTI never went away and has progressively getting worse. ); Abdominal Pain (C/O having abdominal pain.) 08/17/2023 Travel 08/11/2023 Nurse Triage [facility] [address] [place] [address] Roberto Carlos Hill MD Vomiting 08/06/2023 3:10 PM [employer] Office Visit [facility] [address] [place] [address] Debi Sandoval NP Pain On Urination 08/06/2023 Travel from Last 3 Months Immunizations Name Administration Dates Next Due Hepatitis B (Adult) 05/14/2014,01/03/2014,2012 Influenza, IIV3 (Age >=3 years) 07/05/20 17,05/31/2016,05/27/2015,05/28/2013, 08/01/2008 Influenza, IIV4 06/13/2022,06/29/2020,08/30/2018 Influenza, Whole Virus 06/18/2014 Tdap 08/06/2014,08/29/2003 Family History Medical History Relation Name Comments Heart Disease Mother Relation Name Status Comments Mother Social History Tobacco Use Types Packs/Day Years Used Date Smoking Tobacco: Never Smokeless Tobacco: Never Tobacco Cessation:Counseling Given: Yes Alcohol Use Standard Drinks/Week Comments Yes 0 (1 standard drink = 0.6 oz pur e alcohol) very rarely PHQ-2 Answer Date Recorded PHQ-2 Score 0 09/18/2019 Social Connections Answer Date Recorded Frequency of Communication with Friends and Fami ly 0 11/15/2022 Financial Resource Strain Answer Date R ecorded Difficulty of Paying Living Expenses 3 11/15/2022 Difficulty of Paying Living Expenses Not on file 11/15/2022 Food Insecurity Answer Date Recorded Worried About Running Out of Food in the Last Ye ar 1 11/15/2022 Transportation Needs Answer Date Record ed Lack of Transportation (Medical) 1 11/15/2022 Housing Stability Answer Date Recorded Unable to Pay for Housing in the Last Year 1 11/15/2022 Sex and Gender Information Value Date Recorded Sex Assigned at Not on file Gender Identity Not on file Sexual Orientation Not on file Obstetrics History Para Term AB IAB SAB Ectopic Multiple Livin g Live Births 2 2 2 Date Outcome GA Total Labor Labor/2nd/3rd Weight Sex Delivery Anes PTL Pati A1 A5 Name Cl in Term Term Last Filed Vital Signs Vital Sign Reading Time Taken Comments Blood Pressure 135/90 08/17/2023 6:49 PM [employer] Pulse 72 08/17/2023 6:49 PM [employer] Temperature 36.4 ??C (97.6 ??F) 08/17/2023 6:49 PM CS T Respiratory Rate 14 08/17/2023 6:49 PM [employer] Oxygen Saturation 97% 08/17/2023 6:49 PM [employer] Inhaled Oxygen Concentration - - Weight 89.8 kg (198 lb) 08/17/2023 6:49 PM [employer] Height 167.6 cm (5' 6) 04/25/2023 7:30 AM CDT Body Mass Index 31.96 04/25/2023 7:30 AM CDT Plan of Treatment Health Maintenance Due Date Last Done Comments COVID-19 vaccine series (#1) 1972 HIV for age 15-65 1987 Hepatitis C screening for age 18-79 1990 Lipids for age 45-75 2017 Mammogram for age 45-75 2017 06/01/2013, 08/15 BMI (ht and wt on same day) for age 18+ 08/30/2019 08/30/2018, 12/08/2016, 11/12/2016, Additional history exists Depression screening for age 12+ 09/20/2020 09/20/2019, 09/18/2019 Zoster (shingles) series for age 50+ (1 of 2) 2022 Colonoscopy through age 75 09/05/2022 09/05/2017, Influenza for age 50-64 04/21/2023 06/13/20, 06/29/2020, 08/30/2018, Additional history exists Tetanus booster 08/06/2024 08/06/2014, 08/29/2003 Tdap Completed 08/06/2014, 08/29/2003 Pneumococcal series for age 6-64 Aged Out No longer eligible based on patient's age to complete this topic Medical Devices Implanted Type Area Cheese Factory Worker Device Identifier Shelf Expiration Date Model / Serial / Lot [id number] 5bone Cerv 7mm 4deg Cubero W/P Implanted:Qty: 1 on 08/09/2016 by Marleen Conley MD at [facility] Explanted:at [facility] (Quantity not on file) N/A: Spine Cubero Spine 01/09/2021 [id number] / [id number] / [id number] 6bone Cerv 7mm 4deg Cubero W/P Implanted:Qty: 1 on 08/09/2016 by Marleen Conley MD at [facility] Explanted:at [facility] (Quantity not on file) N/A: Spine Noemy Spine 01/11/2021 [id number] / [id number] / Bone Matrix 1cc Progenix Puttydbm - [id number] Implanted:Qty: 1 on 08/09/2016 by Marleen Conley MD at [facility] Explanted:at [facility] (Quantity not on file) N/A: Spine Medtronic Spine/Ortho [id number] / [id number] / Screw Cerv Ant 4.0x14mm [facility] - [id number] Implanted:Qty: 6 on 08/09/2016 by Marleen Conley MD at [facility] N/A: Spine Cubero Spine [id number] / / Stent Uret [id number] Percuflex Hydroplus - [id number] Implanted:Qty: 1 on 09/27/2019 by Danny Araujo MD at [facility] Right: Ureter [facility] 06/30/2022 [id number] / / [id number] Bone Cerv 7mm 4 Deg Noemy W/P - [id number] Implanted:Qty: 1 on 04/25/2023 by Marleen Conley MD at [facility] N/A: Spine Cubero Spine 08/10/2027 [id number] / [id number] / Plate Wilkin 2 Lvl 42mm Implanted:Qty: 1 on 04/25/2023 by Marleen Conley MD at [facility] N/A: Spine [id number] / / Description:PLATE OZARK 2 LV L 42MM Screw Cerv 4.0x14mm Ant Slf Starting Variable Wilkin Implanted:Qty: 4 on 04/25/2023 by Marleen Conley MD at [facility] N/A: Spine [id number] / / Description:Screw Cerv 4.0x1 4mm Ant Slf Starting Variable Wilkin Wilkin Anterior Cervical Screw Self-Starting Variable Screw 4.5mm X 14mm Implanted:Qty: 2 on 04/25/2023 by Marleen Conley MD at [facility] N/A: Spine [id number] / / Description:OZARK Anterior C ervical Screw Self-Starting Variable Screw 4.5mm x 14mm Bone Matrix 1cc Rosario Plus Paste [facility] - [id number] Implanted:Qty: 1 on 04/25/2023 by Marleen Conley MD at [facility] N/A: Spine Medtronic Spine/Ortho 01/08/2025 [id number] / [id number] / Bone Cerv 7mm 4 Deg Noemy W/P - [id number] Implanted:Qty: 1 on 04/25/2023 by Marleen Conley MD at [facility] N/A: Spine Noemy Spine 02/15/2028 [id number] / [id number] / Explanted Type Area Cheese Factory Worker Device Identifier Shelf Expiration Date Model / Serial / Lot Plate Cerv 2lvl 30mm Aviator Ant - [id number] Implanted:Qty: 1 on 08/09/2016 by Marleen Conley MD at [facility] Explanted:Qty: 1 on 04/25/2023 by Marleen Conley MD at [facility] N/A: Spine Cubero Spine [id number] / / Explant Explanted:Qty: 1 on 04/25/[address] [facility] N/A: Spine Description:PLATE X1 SCREW X6 Procedures Procedure Name Priority Date/Time Associated Diagnosis Comments URINALYSIS MICROSCOPIC STAT 08/17/2023 6:30 PM [employer] Urinary tract infection symptoms URINE CULTURE Routine 08/17/2023 6:30 PM [employer] Urinary tract infection symptoms UA W/ SEDIMENT EXAM REFLEXED PER CRITERIA STAT 08/17/2023 6:30 PM [employer] Urinary tract infection symptoms TRICHOMONAS, TATY, AND BACTERIAL VAGINOSIS BY MIESHA STAT 08/06/2023 4:35 PM [employer] Urinary tract infection symptoms CBC WITH AUTO DIFFERENTIAL STAT 08/06/2023 4:27 PM [employer] Urinary tract infection symptoms BASIC METABOLIC PANEL STAT 08/06/2023 4:27 PM [employer] Urinary tract infection symptoms CBC WITH AUTO DIFFERENTIAL STAT 08/06/2023 4:27 PM [employer] Urinary tract infection symptoms URINALYSIS MICROSCOPIC STAT 08/06/2023 3:45 PM [employer] Urinary tract infection symptoms URINE CULTURE Routine 08/06/2023 3:45 PM [employer] Urinary tract infection symptoms UA W/ SEDIMENT EXAM REFLEXED PER CRITERIA STAT 08/06/2023 3:45 PM [employer] Urinary tract infection symptoms from Last 3 Months Results * (ABNORMAL) URINALYSIS MICROSCOPIC (08/17/2023 6:30 PM [employer]) Only the most recent of2 resultswithin the time period is included. RBC 0-2 0-2, None Seen /HPF 08/17/2023 7:05 PM [employer] [facility] WBC 6-10(A) 0-2, 3-5, None Seen /HPF 08/17/2023 7:05 PM [employer] [facility] BACTERIA Moderate(A) None Seen, Rare, Few Bacteria/ HPF 08/17/2023 7:05 PM [employer] [facility] EPITHELIAL CELLS Many(A) None Seen, Few Epi/HPF 08/17/2023 7:05 PM [employer] [facility] Mucus Present 08/17/2023 7:05 PM [employer] [facility] Urine URINE SPECIMEN / Unknown Non-Blood / Unknown 08/17/2023 6:30 PM [employer] 08/17/2023 6:55 PM [employer] Grazyna Rockwell NP URINE [facility] [address] [place] [id number] * URINE CULTURE [61196.2] (08/17/2023 6:30 PM [employer]) Only the most recent of2 resultswithin the time period is included. CULTURE <10,000 CFU/mL multiple organisms 08/18/2023 3:35 PM [employer] [facility] Urine URINE SPECIMEN / Unknown Non-Blood / Unknown 08/17/2023 6:30 PM [employer] 08/17/2023 6:55 PM [employer] Grazyna Rockwell NP MICROBIOLOGY [facility] [address] [place] [address], [place] * (ABNORMAL) UA W/ SEDIMENT EXAM REFLEXED PER CRITERIA (UA w/ reflex micro if positive) [62889.2] (08/17/2023 6:30 PM [employer]) Only the most recent of2 resultswithin the time period is included. COLOR Yellow Yellow Color 08/17/2023 7:05 PM [facility] CLARITY Slightly Cloudy(A) Clear Clarity 08/17/2023 7:05 PM [facility] SPECIFIC GRAVITY,URINE 1.025 1.010, 1.015, 1.020, 1.025 08/17/2023 7:05 PM [facility] PH,URINE 6.0 6.0, 7.0, 8.0, 5.5, 6.5, 7.5, 8.5 08/17/2023 7:05 PM [facility] UROBILINOGEN, QUALITATIVE Normal Normal EU/dl 08/17/2023 7:05 PM [facility] PROTEIN, URINE Negative Negative mg/dL 08/17/2023 7:05 PM [facility] GLUCOSE, URINE Negative Negative mg/dL 08/17/2023 7:05 PM [facility] KETONES,URINE Trace(A) Negative mg/dL 08/17/2023 7:05 PM [facility] BILIRUBIN,URI NE Negative Negative 08/17/2023 7:05 PM [facility] OCCULT BLOOD,URINE Negative Negative 08/17/2023 7:05 PM [facility] NITRITE Negative Negative 08/17/2023 7:05 PM [facility] LEUKOCYTE ESTERASE Small(A) Negative 08/17/2023 7:05 PM [facility] Urine URINE SPECIMEN / Unknown Non-Blood / Unknown 08/17/2023 6:30 PM [employer] 08/17/2023 6:55 PM [employer] Grazyna Rockwell NP URINE [facility] [address] [place] [address] * TRICHOMONAS, TATY, AND BACTERIAL VAGINOSIS BY MIESHA (08/06/2023 4:35 PM BEFORE [employer]AB[employer]) TATY SPECIES Negative Negative 5:25 PM [employer]AB[employer] [facility] TATY GLABRATA Negative Negative 08/07/2023 5:25 PM [employer] [facility] TRICHOMONAS VVA Negative Negative 5:25 PM [employer]AB[employer] [facility] BACTERIAL VAGINOSIS Negative Negative 08/07/2023 5:25 PM [employer] [facility] Other VAGINAL SWAB / Unknown Non-Blood / Unknown 08/06/2023 4:35 PM [employer] 08/06/2023 4:40 PM [employer] Debi Sandoval NP MICROBIOLOGY [facility] [address] [place] [address], * (ABNORMAL) CBC WITH AUTO DIFFERENTIAL (08/06/2023 4:27 PM [employer]FORE [employer]) Pathologist [facility] WHITE BLOOD COUNT 7.8 4.5 - 11.0 thou/cu mm 08/06/2023 4:33 PM [facility] RED BLOOD COUNT 5.24(H) 4.00 - 5.20 mil/cu mm 08/06/2023 4:33 PM [facility] HEMOGLOBIN 15.5 12.0 - 16.0 g/dL 08/06/2023 4:33 PM [facility] HEMATOCRIT 45.8 33.0 - 51.0 % 08/06/2023 4:33 PM [facility] MCV 87 80 - 100 fL 08/06/2023 4:33 PM [facility] MCH 29.6 26.0 - 34.0 pg 08/06/2023 4:33 PM [facility] MCHC 33.8 32.0 - 36.0 g/dL 08/06/2023 4:33 PM [facility] RDW 12.7 11.5 - 15.5 % 08/06/2023 4:33 PM [facility] PLATELET COUNT 275 140 - 440 thou/cu mm 08/06/2023 4:33 PM [facility] MPV 10.2 6.5 - 11.0 fL 08/06/2023 4:33 PM [facility] % NEUT 56.5 % 08/06/2023 4:33 PM [facility] % LYMPH 32.5 % 08/06/2023 4:33 PM [facility] % MONO 9.5 % 08/06/2023 4:33 PM [facility] % EOS 1.2 % 08/06/2023 4:33 PM [facility] % BASO 0.3 % 08/06/2023 4:33 PM [facility] ABSOLUTE NEUTROPHILS 4.4 1.7 - 7.0 thou/cu mm 08/06/2023 4:33 PM [facility] ABSOLUTE LYMPHOCYTES 2.5 0.9 - 2.9 thou/cu mm 08/06/2023 4:33 PM [facility] ABSOLUTE MONOCYTES 0.7 <0.9 thou/cu mm 08/06/2023 4:33 PM [facility] ABSOLUTE EOSINOPHILS 0.1 <0.5 thou/cu mm 08/06/2023 4:33 PM [facility] ABSOLUTE BASOPHILS 0.0 <0.3 thou/cu mm 08/06/2023 4:33 PM [facility] Blood BLOOD SPECIMEN / Unknown Venipuncture / Unknown 08/06/2023 4:27 PM [employer] 08/06/2023 4:27 PM [employer] Debi Sandoval NP HEMATOLOGY [facility] [address] [place] [address] * (ABNORMAL) BASIC METABOLIC PANEL (08/06/2023 4:27 PM BEFORE [employer]) SODIUM 139 136 - 145 mmol/L 08/06/2023 4:50 PM [facility] POTASSIUM 4.2 3.5 - 5.1 mmol/L 08/06/2023 4:50 PM [facility] CHLORIDE 103 98 - 107 mmol/L 08/06/2023 4:50 PM [facility] CO2,TOTAL 27 22 - 29 mmol/L 08/06/2023 4:50 PM [facility] ANION GAP 9 5 - 18 08/06/2023 4:50 PM [facility] GLUCOSE 93 70 - 99 mg/dL 08/06/2023 4:50 PM [facility] CALCIUM 9.7 8.6 - 10.0 mg/dL 08/06/2023 4:50 PM [facility] BUN 22(H) 6 - 20 mg/dL 08/06/2023 4:50 PM [facility] CREATININE 0.90 0.50 - 0.90 mg/dL 08/06/2023 4:50 PM [facility] BUN/CREAT RATIO 24(H) 10 - 20 4:50 PM [facility] eGFR 78(L) >90 mL/min/1.7 3m2 08/06/2023 4:50 PM [facility] Comment:As of 2021, eG FR is calculated by the CKD-EPI creatinine equation without race adjustment. ??eGFR can be influenced by muscle mass, exercise, and diet. ??The reported eGFR is an estimation only and is only applicable if the renal function is stable. Blood BLOOD SPECIMEN / Unknown Venipuncture / Unknown 08/06/2023 4:27 PM [employer] 08/06/2023 4:27 PM [employer] Debi Sandoval NP CHEMISTRY [facility] [address] [place] [address] from Last 3 Months Advance Directives Latest Code Status on File Code Status Date Activated Date Inactivated Comments Full Code 04/25/2023 8:06 AM 04/26/2023 9:55 PM Question Answer Comments Code Status Discussion: Other Code Status History Code Status Date Activated Date Inactivated Comments Full Code 09/27/2019 5:49 AM 09/27/2019 1:16 PM Full Code 08/09/2016 8:25 PM 08/11/2016 2:00 PM Full Code 08/09/2016 9:15 AM 08/09/2016 8:25 PM Care Teams Division Operations Specialist Relationship Specialty Start Date End Date Roberto Carlos Hill MD [address] [place] [address] PCP - General Family Practice 09/26/19
== END 2023-10-01 21:42 | disposition home or self-care (01) ==
LOC: ED 21:36
PROVIDERS: Emergency Provider Internal Medicine; PCP Nurse Practitioner Family
DX: Z53.21 Procedure and treatment not carried out due to patient leaving prior to being seen by health care provider (principal)

== ENCOUNTER 2023-11-16 12:18 | Outpatient (CLI) | payer MEDICAID, SELFPAY | END 2023-11-16 12:19 | disposition home or self-care (01) | PROVIDERS: PCP Family Medicine; Visit Provider Family Medicine | DX: I10 Essential (primary) hypertension (principal); R53.83 Other fatigue; Z13.9 Encounter for screening, unspecified | CPT/HCPCS: 80048; 80076; 84443; 85025 ==

== ENCOUNTER 2025-06-16 13:52 | Outpatient (CLI) | payer MEDICAID, SELFPAY | END 2025-06-16 13:53 | disposition home or self-care (01) | PROVIDERS: PCP Family Medicine; Visit Provider Family Medicine | DX: I10 Essential (primary) hypertension (principal); Z13.9 Encounter for screening, unspecified | CPT/HCPCS: 80048; 80061; 84460; 85025 ==